=== PATIENT | male | born 1965 | race Caucasian/White ===

== ENCOUNTER 2017-11-15 09:42 | Emergency (ER) | payer SELFPAY ==
[2017-11-15] MEDS ORDERED: ONDANSETRON HCL 4 MG TAB.RAPDIS ONE (10:09)
--- NOTE | 2017-11-17 18:33 | Diagnostic Imaging Report ---
COLT SHIPLEY [facility] [id number] [facility] [address] [address] Report Submission Date: Nov 16, 2017 5:27:15 PM CDT Patient Study Name: NEFTALI PAZ Date: Nov 15, 2017 9:48:35 AM CDT Modality Type: DX Gender: M Description: LOWER EXTREMITY : 63 Institution: [facility] Physician: COLT SHIPLEY Examination: Plain film left foot History: TRAUMA (Hx) Findings: 3 views of the left foot demonstrates osteopenia. Articular degenerative changes. No evidence for displaced fracture line. Posterior calcaneal spur. No soft tissue swelling. No joint effusion. Impression: Osteopenia and degenerative changes. No fracture. Electronically signed on Nov 16, 2017 5:27:15 PM CDT by: Fred AMIN
== END 2017-11-15 09:44 ==
LOC: ED 09:42
DX: S92.402A Displaced unspecified fracture of left great toe, initial encounter for closed fracture (principal); X58.XXXA Exposure to other specified factors, initial encounter; Y93.79 Activity, other specified sports and athletics; Y92.73 Farm field as the place of occurrence of the external cause; Y99.9 Unspecified external cause status
CPT/HCPCS: 73630; A9270; 99283